=== PATIENT | female | born 1995 | race Two or more races ===

== ENCOUNTER 2017-07-18 19:10 | Outpatient (CLI) | payer MEDICAID ==
[2017-07-18 20:00] LABS: APPEARANCE,URINE CLOUDY; BILIRUBIN,URINE NEGATIVE (NEGATIVE); COLOR,URINE YELLOW; GLUCOSE, URINE NEGATIVE (NEGATIVE); KETONES,URINE NEGATIVE (NEGATIVE); LEUKOCYTE ESTERASE,URINE MODERATE (NEGATIVE); NITRITE,URINE NEGATIVE (NEGATIVE); PROTEIN,URINE NEGATIVE (NEGATIVE); URINE SPECIFIC GRAVITY 1.019
[2017-07-18 20:12] LABS: URINE AMPHETAMINES SCREEN NEGATIVE; URINE BARBITURATES SCREEN NEGATIVE; URINE BENZODIAZEPINES SCREEN NEGATIVE; URINE COCAINE SCREEN NEGATIVE; URINE METHADONE SCREEN NEGATIVE; URINE PHENCYCLIDINE SCREEN NEGATIVE
[2017-07-18 20:16] LABS: URINE MARIJUANA (THC) SCREEN UNCONFIRMED POSITIVE
[2017-07-18 20:24] LABS: T.VAGINALIS (WET MOUNT) NO TRICHOMONAS SEEN; YEAST (WET MOUNT) NO YEAST SEEN
[2017-07-18 20:25] LABS: BACTERIA (WET MOUNT) 4+ BACTERIA SEEN; EPITHELIALS (WET MOUNT) 3+ EPITHELIALS SEEN; WBCS (WET MOUNT) 1+ WBCS SEEN
[2017-07-18 21:49] LABS: CHLAM PCR NOT DETECTED (NOT DETECT); GON PCR DETECTED (NOT DETECT)
[2017-07-18] MEDS ORDERED: AZITHROMYCIN 250 MG TABLET ONE (22:05)
[2017-07-18] MEDS ORDERED: AZITHROMYCIN 250 MG TABLET PO ONE (22:05)
[2017-07-18] MEDS ORDERED: CEFTRIAXONE INJ 1000 MG VIAL ONE (22:05)
[2017-07-18] MEDS ORDERED: ONDANSETRON 4 MG TAB.RAPDIS ONE (22:05)
[2017-07-18] MEDS ORDERED: CEFTRIAXONE INJ 250 MG VIAL IM ONE (22:05)
--- NOTE | 2017-07-18 22:28 | Non Stress Test Report ---
Non Stress Test Datetime Report Generated by CPN: 07/18/2017 22:28 DEMOGRAPHIC EGA NST: 40.5 INDICATION Indication for Study: Ordered by Provider MONITORING Monitor Explained: Monitor Explained; Test Explained; Patient Verbalized Understanding Time on Monitor: 07/18/2017 19:31 Time off Monitor: 07/18/2017 21:29 NST Duration: 118 NST INTERVENTIONS NST Interventions: PO Hydration; Reposition Patient Physician Notified NST: Iqbal BABY A: [id number] BABY A Movement : Present Contraction Frequency : occ FHR Baseline : 125 Accelerations : 15X15 Decelerations : None Variability : Moderate 6-25bpm NST Review: Meets Criteria for Reactive NST NST Review and Verified By : Kwesi Dubose RN NST Results: Reactive NST REPORT Report Trigger: Send Report
--- NOTE | 2017-07-18 23:10 | RADIOLOGY REPORT (SQ) ---
EXAM DESCRIPTION: U/S OB LIMITED COMPLETED DATE/TIME: 07/18/2017 9:05 pm REASON FOR STUDY: Growth, 40+5, poor care, THEO, presentation COMPARISON: None. TECHNIQUE: Limited transabdominal grayscale ultrasound for evaluation of specific requested obstetri billy parameters. LIMITATIONS: None. FINDINGS: Gestational age 39 weeks 0 days. EFW 3709 g, 62 percentile for dates. THEO: 18.5 cm. FHR: 133 beats per minute. PRESENTATION: Cephalic. OTHER: Anterior placenta. IMPRESSION: LIMITED OBSTETRICAL ULTRASOUND WITH MEASURED PARAMETERS DELINEATED ABOVE. Trimester of : Third trimester - 28 weeks to delivery. TECHNICAL DOCUMENTATION: JOB ID: [id number] [id number] 2010 [employer]- All Rights Reserved Reading location - IP/workstation name: [email or web address]
== END 2017-07-18 22:21 | disposition home or self-care (01) ==
LOC: LC 19:10
PROVIDERS: ATTEND Student in an Organized Health Care Education/Training Program
PROC: 4A1HXCZ Monitoring of Products of Conception, Cardiac Rate, External Approach (ICD-10-PCS; principal; 2017-07-18)
DX: O47.1 False labor at or after 37 completed weeks of gestation (principal); Z3A.40 40 weeks gestation of pregnancy
CPT/HCPCS: 59025; 87086; 87210; 81001; 80307; 87491; 87591; 76815; G0480 ×2; Q0144; S0119; J0696

== ENCOUNTER 2017-07-20 06:02 | Inpatient (IN) | payer MEDICAID ==
[2017-07-20] MEDS ORDERED: RINGERS SOLUTION,LACTATED 1,000 ML IV PRN (06:35)
[2017-07-20] MEDS ORDERED: RINGERS SOLUTION,LACTATED 1,000 ML IV ONE (06:35)
[2017-07-20 06:51] LABS: APPEARANCE,URINE TURBID; BILIRUBIN,URINE NEGATIVE (NEGATIVE); COLOR,URINE YELLOW; GLUCOSE, URINE NEGATIVE (NEGATIVE); KETONES,URINE NEGATIVE (NEGATIVE); LEUKOCYTE ESTERASE,URINE TRACE (NEGATIVE); NITRITE,URINE NEGATIVE (NEGATIVE); PROTEIN,URINE 100 mg/dL (NEGATIVE); URINE SPECIFIC GRAVITY 1.008; UROBILINOGEN,URINE NEGATIVE mg/dL (<2.0)
[2017-07-20 07:04] LABS: ABSOLUTE EOSINOPHILS # (AUTO) 0.2 10^3/uL (0.0-0.6); ABSOLUTE LYMPHOCYTES (AUTO) 1.4 10^3/uL (0.5-4.7); ABSOLUTE MONOCYTES (AUTO) 0.8 10^3/uL (0.1-1.4); BASOPHILS % (AUTO) 0.4 % (0-2); HEMATOCRIT 35.4 % (36.0-47.0); HEMOGLOBIN 11.6 g/dL (12.0-15.5); LYMPHOCYTES % (AUTO) 14.9 % (13-45); MEAN CORPUSCULAR HEMOGLOBIN 28.3 pg (27.0-33.4); MEAN CORPUSCULAR HGB CONC 32.9 g/dL (32.0-36.0); MEAN CORPUSCULAR VOLUME 86 fl (80-97); PLATELET COUNT 163 10^3/uL (150-450); RED BLOOD COUNT 4.11 10^6/uL (3.72-5.28); RED CELL DISTRIBUTION WIDTH 14.9 % (11.5-14.0); SEGMENTED NEUTROPHILS % (AUTO) 74.7 % (42-78); TOTAL CELLS COUNTED % (AUTO) 100 %; WHITE BLOOD COUNT 9.4 10^3/uL (4.0-10.5)
[2017-07-20 07:07] LABS: URINE AMPHETAMINES SCREEN NEGATIVE; URINE BARBITURATES SCREEN NEGATIVE; URINE BENZODIAZEPINES SCREEN NEGATIVE; URINE COCAINE SCREEN NEGATIVE; URINE MARIJUANA (THC) SCREEN NEGATIVE; URINE METHADONE SCREEN NEGATIVE; URINE PHENCYCLIDINE SCREEN NEGATIVE
[2017-07-20] MEDS ORDERED: OXYTOCIN/NORMAL SALINE 20 UNIT/1,000 ML RTUINJ ONE (07:26)
[2017-07-20] MEDS ORDERED: OXYTOCIN/NORMAL SALINE 20 UNIT/1,000 ML RTUINJ IV PRN ×2 (07:33→18:09)
--- NOTE | 2017-07-20 07:56 | Admission Physical ---
Datetime Report Generated by CPN: 07/20/2017 07:55 CURRENT ADMISSION Chief Complaint: Uterine Contractions; Suspected Ruptured Membranes Indication for Induction: PROM Admit Impression : Term, Intrauterine ; No Active Labor; Ruptured Membranes Admit Plan: Admit to Unit; Initiate Labor Induction Protocol ALLERGIES Medication Allergies: No Medication Allergies: No Known Allergies (07/20/2017) Latex: No Latex Allergies OBSTETRICAL HISTORY EDC: 07/13/2017 00:00 : 2 Para: 0 Term: 0 : 0 SAB: 0 IAB: 0 Ectopic: 0 Livin Cesareans: 0 VBACs: 0 Multiple Births: 0 Gestational Diabetes: No Rh Sensitization: No Incompetent Cervix: No STACIE: No Infertility: No ART Treatment: No Uterine Anomaly: No IUGR: No Hx Previous C/S: No Macrosomia: No Hx Loss/Stillborn: No PIH: No Hx : No Placenta Previa/Abruption: No Depression/PP Depression: No PTL/PROM: No Post Hemorrhage: No Current Procedures: Ultrasound Obstetrical History Comments: g1 - SAB g2 - current pregnacy. scant PNC SEE RECORDS Alcohol: No Marijuana : No Cocaine: No Other Illicit Drugs: No Cigarettes: Never Smoker. [id number] MEDICAL HISTORY Diabetes: No Blood Transfusion: No Pulmonary Disease (Asthma, TB): No Breast Disease: No Hypertension: No Corporate General Manager Surgery: No Heart Disease: No Hosp/Surgery: No Autoimmune Disorder: No Anesthetic Complications: No Kidney Disease: No Abnormal Pap Smear: No Neuro/Epilepsy: No Psychiatric Disorders: No Other Medical Diseases: No Hepatitis/Liver Disease: No Significant Family History: No Varicosities/Phlebitis: No Trauma/Violence : No Thyroid Dysfunction: No INFECTIOUS HISTORY Gonorrhea: Yes Genital Herpes: No Chlamydia: Yes Tuberculosis: No Syphilis: No Hepatitis: No HIV/AIDS Exposure: No Rash or Viral Illness: No HPV: No Infectious History Comments: 04/16 postive trichomoniasis 07/01 gonorrhea and chlamydia positive PHYSICAL EXAM General: Normal HEENT: Normal Neurologic: Normal Thyroid: Normal Heart: Normal Lungs: Normal Breast: Normal Back: Normal Abdomen: Normal Genitourinary Exam: Normal Extremities: Normal DTRs: Normal Pelvic Type: Adequate Vital Signs: Reviewed VAGINAL EXAM Dilatation: 2 Effacement: 75 Station: -2 MEMBRANES Pooling: Positive Membranes: Ruptured Amniotic Fluid Color: Clear FETUS A EGA: 41.0 Monitoring: External US FHR- Baseline: 120 Variability: Moderate 6-25bpm Accelerations: 15X15 Decelerations: None FHR Category: Category I Estimated Weight (gm): 3900 Presentation: Vertex PLANS FOR LABOR AND DELIVERY Labor and Delivery: None Pain Management: Natural; Medications; Epidural Feeding Preference: Formula Benefit of Breast Feed Discussed: Yes Circumcision: Yes INFORMED CONSENT Signature: with User ID: [email or web address]
[2017-07-20] MEDS ORDERED: CEFTRIAXONE INJ 1000 MG VIAL IV ONE (08:35)
[2017-07-20] MEDS ORDERED: AZITHROMYCIN INJ 500 MG VIAL IV ONE (08:35)
[2017-07-20] MEDS ORDERED: CEFTRIAXONE INJ 1000 MG VIAL ONE (09:41)
[2017-07-20] MEDS ORDERED: AZITHROMYCIN 1,000 MG in DEXTROSE 5%-WATER 500 ML IV ONE (10:45)
[2017-07-20] MEDS ORDERED: NALBUPHINE HCL INJ 10 MG/1 ML AMPULE IM ONE (11:43)
[2017-07-20] MEDS ORDERED: NALBUPHINE HCL INJ 10 MG/1 ML AMPULE ONE (11:45)
[2017-07-20] MEDS ORDERED: FENTANYL/BUPIVACAINE/NS/PF 200 MCG/100 ML RTUINJ EPI ONE (12:11)
[2017-07-20] MEDS ORDERED: FENTANYL CITRATE INJ/PF 100 MCG/2 ML AMPUL ONE (12:11)
[2017-07-20] MEDS ORDERED: EPHEDRINE SULFATE INJ 50 MG/1 ML AMPULE ONE (12:11)
[2017-07-20] MEDS ORDERED: BUPIVACAINE HCL 0.25 % INJ/PF (2.5 MG/1 ML) 30 ML VIAL ONE (12:11)
[2017-07-20] MEDS ORDERED: LIDOCAINE 1% INJ-PF (10 MG/ML) 30 ML SDV ONE (15:52)
[2017-07-20] MEDS ORDERED: MISOPROSTOL 0.2 MG TABLET ONE (15:52)
[2017-07-20] MEDS ORDERED: MEASLES,MUMPS&RUBELLA VACC/PF 0.5 ML VIAL SUBCUT PRN (18:09)
[2017-07-20] MEDS ORDERED: DIBUCAINE 1% OINTMENT 28 GM TP PRN (18:09)
[2017-07-20] MEDS ORDERED: GLYCERIN/WITCH HAZEL LEAF 1 EACH MED..PAD TP PRN (18:09)
[2017-07-20] MEDS ORDERED: PROMETHAZINE HCL INJ 25 MG/1 ML VIAL IV PRN (18:09)
[2017-07-20] MEDS ORDERED: ACETAMINOPHEN 325 MG TABLET PO PRN (18:09)
[2017-07-20] MEDS ORDERED: PSEUDOEPHEDRINE HCL 30 MG TABLET PO PRN (18:09)
[2017-07-20] MEDS ORDERED: ZOLPIDEM TARTRATE 5 MG TABLET PO PRN (18:09)
[2017-07-20] MEDS ORDERED: MAGNESIUM HYDROXIDE SUSP 30 ML UDCUP PO PRN (18:09)
[2017-07-20] MEDS ORDERED: PROMETHAZINE HCL 25 MG TABLET PO PRN (18:09)
[2017-07-20] MEDS ORDERED: DIPH/PERTUSS(ACELL)/TETANUS VAC/PF 0.5 ML SYR (>=10YO) IM PRN (18:09)
[2017-07-20] MEDS ORDERED: DIPHENHYDRAMINE HCL 25 MG CAPSULE PO PRN (18:09)
[2017-07-20] MEDS ORDERED: PROMETHAZINE HCL 25 MG SUPP.RECT PR PRN (18:09)
[2017-07-20] MEDS ORDERED: NA PHOS,M-B/NA PHOS,DI-BA (ADULT) 133 ML ENEMA PR PRN (18:09)
[2017-07-20] MEDS ORDERED: ACETAMINOPHEN WITH CODEINE #3 TABLET PO PRN ×2 (18:09)
[2017-07-20] MEDS ORDERED: BENZOCAINE/MENTHOL AEROSOL SPRAY 56 ML TOP PRN (18:09)
--- NOTE | 2017-07-20 19:30 | Delivery Summary ---
Del Sum A-C Datetime Report Generated by CPN: 07/20/2017 19:29 DELIVERY PERSONNEL DELIVERY PERSONNEL: [id number] Delivery Doctor:: Nhi Iqbal MD Anesthesiologist:: Shagufta Weaver MD Labor and Delivery Nurse:: Tracy Harrington RN Nursery Nurse:: Avani Enriquez RN Body Builder Apprentice/BODY TRIMMER UPHOLSTERER: Rajeev Sherman, ROLL FORMING MACHINE OPERATOR MATERNAL INFORMATION Delivery Anesthesia: Epidural Medications After Delivery: Pitocin Bolus-Please Comment Estimated Blood Loss (ml): 250 Maternal Complications: Other Other Maternal Complications: Limited PNC, active Gonorrhea infection Provider Comments: VMI delivered in RORY presentation. Tight nuchal cord delivered through. Shoulders and body delivered without difficulty. Cord doubly clamped and cut. Shoulders and body delivered without difficulty. Placenta delivered intact spontaneously. Good hemostasis post repair of left labial laceration. FF at U. Mother and baby stable upon provider leaving the room. Infant noted to have cleft lip and prob cleft palate. Dr. Sweet to [facility]. LABOR SUMMARY EDC: 07/13/2017 00:00 No. Babies in Womb: 1 Attempted: No Labor Anesthesia: Epidural LABOR INFORMATION Reason for Induction: Premature Rupture of Membranes Onset of Labor: 07/20/2017 07:51 Complete Dilatation: 07/20/2017 17:29 Oxytocin: Induction Group B Beta Strep: negative (Annotations: Data stored by CPN on behalf of user) Antibiotics # of Doses: 2 Antibiotics Time of Last Dose: 1129 Name of Antibiotic Given: Zithromax Steroids Given: None Reason Steroids Not Administered: Not Applicable MEMBRANES Membranes Rupture Method: Spontaneous Rupture of Membranes: 07/20/2017 04:30 Length of Rupture (hr): 13.28 Amniotic Fluid Color: Clear Amniotic Fluid Amount: Moderate Amniotic Fluid Odor: Normal STAGES OF LABOR Stage 1 hr: 9 Stage 1 min: 38 Stage 2 hr: 0 Stage 2 min: 18 Stage 3 hr: 0 Stage 3 min: 2 Total Time in Labor hr: 9 Total Time in Labor min: 58 VAGINAL DELIVERY Episiotomy: None Laceration #1: Perineal Laceration Extension #1: N/A Other Laceration: left labial laceration Laceration Repair: Yes Sponge Count Correct: Yes Sharps Count Correct: Yes CSECTION DELIVERY Primary Indication: N/A Secondary Indication: N/A CSection Incidence: N/A Labor: N/A Elective: N/A CSection Incision: N/A BABY A INFORMATION Delivery Date/Time: 07/20/2017 17:47 Method of Delivery: Vaginal Born in Route : No : N/A Forceps: N/A Vacuum Extraction: N/A Shoulder Dystocia : No PRESENTATION/POSITION BABY A Presentation: Cephalic Cephalic Presentation: Vertex Vertex Position: Right Occipital Anterior Breech Presentation: N/A PLACENTA INFORMATION BABY A Placenta Delivery Time : 07/20/2017 17:49 Placenta Method of Delivery: Spontaneous Placenta Status: Delivered SCORES BABY A Heart Rate 1 min: >100 bpm Resp Effort 1 min: Good Cry Reflex Irritability 1 min: Cough or Sneeze or Pulls Away Muscle Tone 1 min: Active Motion Color 1 min: Body [place], Extremities Blue Resuscitation Effort 1 min: Tactile Stimulation SCORE 1 MIN: 9 Heart Rate 5 min: >100 bpm Resp Effort 5 min: Good Cry Reflex Irritability 5 min: Cough or Sneeze or Pulls Away Muscle Tone 5 min: Active Motion Color 5 min: Body [place], Extremities Blue Resuscitation Effort 5 min: Tactile Stimulation SCORE 5 MIN: 9 INFORMATION BABY A Gestational Age at Delivery: 41.0 Gestational Status: Late Term- 41- 41.6 Weeks Outcome : Liveborn Infant Condition : Stable Sex: Male IDENTIFICATION BABY A Verification Date/Time: 07/20/2017 17:59 ID Band Number: [id number] Mother's Name Verified: Yes RN Verifying : Mari Alarcon RN Additional Verifying Personnel: Souleymane Enriquez RN WEIGHT/LENGTH BABY A Birthweight (gm): 3760 Weight (lb): 8 Weight (oz): 5 Infant Length (in): 20.50 Length (cm): 52.07 CORD INFORMATION BABY A No. Cord Vessels: 3 Nuchal Cord : Around Neck x1, Tight Cord Blood Taken: Yes-For Storage (Mom's Blood type +) Suction: Mouth ASSESSMENT BABY A Infant Complications: None Physical Findings at Delivery: Molding of the Head; Other Physical Findings- Other: Cleft Lip and palate Respirations: Appears Normal Skin to Skin: Yes Skin to Skin Time (min): 15 Rehab Aid/ALS Called : No Infant Care By: Souleymane Enriquez RN Transferred To: Remains with Mother BABY B INFORMATION : N/A SIGNATURES Signature: with User ID: [email or web address]
[2017-07-20] MEDS: FAMOTIDINE 20 MG TABLET PO SCH (21:43)
[2017-07-20] MEDS: IBUPROFEN 800 MG TABLET PO SCH (21:43)
[2017-07-21] MEDS: IBUPROFEN 800 MG TABLET PO SCH ×3 (06:10→22:07)
[2017-07-21 07:49] LABS: HEMATOCRIT 32.4 % (36.0-47.0); HEMOGLOBIN 10.6 g/dL (12.0-15.5); MEAN CORPUSCULAR HEMOGLOBIN 28.5 pg (27.0-33.4); MEAN CORPUSCULAR HGB CONC 32.8 g/dL (32.0-36.0); MEAN CORPUSCULAR VOLUME 87 fl (80-97); PLATELET COUNT 165 10^3/uL (150-450); RED BLOOD COUNT 3.74 10^6/uL (3.72-5.28); RED CELL DISTRIBUTION WIDTH 15.4 % (11.5-14.0); WHITE BLOOD COUNT 11.6 10^3/uL (4.0-10.5)
[2017-07-21] MEDS: PRENATAL VITAMIN W DHA CAPSULE PO SCH (09:21)
[2017-07-21] MEDS: SENNOSIDES/DOCUSATE 8.6-50 MG 1 EACH TABLET PO SCH (09:22)
[2017-07-21] MEDS: FERROUS SULFATE 325 MG TABLET PO SCH ×2 (09:22→17:40)
[2017-07-21] MEDS: DOCUSATE SODIUM 100 MG CAPSULE PO SCH ×2 (09:22→17:39)
[2017-07-21] MEDS: FAMOTIDINE 20 MG TABLET PO SCH ×2 (09:23→22:07)
--- NOTE | 2017-07-21 10:41 | PDOC PROGRESS REPORT ---
Subjective-OB Progress Note for:: 07/21/17 Subjective: Doing well, no c/o, discussing baby's cleft lip and palate, baby is well and bottle using special nipple, voiding, eating well, good spirits Physical Exam (OB) Vital Signs: Temp Pulse Resp BP Pulse Ox 97.9 F 61 15 127/89 H 97 07/21/17 07:48 07/21/17 07:48 07/21/17 07:48 07/21/17 07:48 07/21/17 07:48 Intake & Output 07/20/17 07/21/17 07/22/17 06:59 06:59 06:59 Intake Total 550 400 Balance 550 400 Weight 95.3 kg - PIH/Pre-Eclampsia DTR's: 2 + Clonus: Negative Headache: Absent Epigastric Pain: No Visual Changes: No - Lochia Lochia Amount: Scant < 10 ml Lochia Color: Rubra/Red - Abdomen Description: Tender, Soft Hernia Present: No Fundal Description: Firm, Midline Fundal Height: u/u - u/2 Objective-Diagnostic Laboratory: 07/21/17 07:25 07/21/17 07:25 WBC 11.6 H RBC 3.74 Hgb 10.6 L Hct 32.4 L MCV 87 MCH 28.5 MCHC 32.8 RDW 15.4 H Plt Count 165 Assessment and Plan(PN) - Assessment and Plan (2) Poor patient attendance of care Is this a current diagnosis for this admission?: Yes (3) Gonorrhea affecting Qualifiers: Trimester: third trimester Qualified Code(s): O98.213 - Gonorrhea complicating , third trimester Is this a current diagnosis for this admission?: Yes (4) Trichomonal vaginitis during Qualifiers: Trimester: third trimester Qualified Code(s): O23.593 - Infection of other part of genital tract in , third trimester; A59.01 - Trichomonal vulvovaginitis; A59.01 - Trichomonal vulvovaginitis Is this a current diagnosis for this admission?: Yes (5) Premature rupture of membranes Qualifiers: PROM gestational age: -third trimester Is this a current diagnosis for this admission?: Yes - Time Spent with Patient Time with patient: Less than 15 minutes Medications reviewed and adjusted accordingly: Yes - Disposition Anticipated Discharge: Home Within: within 48 hours
[2017-07-22] MEDS: IBUPROFEN 800 MG TABLET PO SCH ×2 (06:18→14:20)
[2017-07-22 08:31] VITALS: BP 124/69
[2017-07-22] MEDS: PRENATAL VITAMIN W DHA CAPSULE PO SCH (09:49)
[2017-07-22] MEDS: FAMOTIDINE 20 MG TABLET PO SCH (09:49)
[2017-07-22] MEDS: FERROUS SULFATE 325 MG TABLET PO SCH (09:49)
[2017-07-22] MEDS: DOCUSATE SODIUM 100 MG CAPSULE PO SCH (09:50)
[2017-07-22] MEDS: SENNOSIDES/DOCUSATE 8.6-50 MG 1 EACH TABLET PO SCH (09:50)
--- NOTE | 2017-07-22 12:00 | PDOC DISCHARGE SUMMARY ---
Final Diagnosis Discharge Date: 07/22/17 - Final Diagnosis (1) Poor patient attendance of care Is this a current diagnosis for this admission?: Yes (2) Acute blood loss anemia Is this a current diagnosis for this admission?: Yes (3) Vaginal delivery Is this a current diagnosis for this admission?: Yes (4) Gonorrhea affecting Is this a current diagnosis for this admission?: Yes (5) Trichomonal vaginitis during Is this a current diagnosis for this admission?: Yes (6) Chlamydia infection, current Is this a current diagnosis for this admission?: Yes (7) Post term over 40 weeks Is this a current diagnosis for this admission?: Yes (8) Premature rupture of membranes Is this a current diagnosis for this admission?: Yes Discharge Data - Discharge Medication Prescriptions: Ibuprofen [Motrin 800 mg Tablet] 800 mg PO Q8HP PRN #60 tablet PRN Reason: Abdominal Cramping Docusate Sodium [Colace 100 mg Capsule] 100 mg PO BID #60 capsule Ferrous Sulfate [Feosol 325 mg Tablet] 325 mg PO BID #60 tablet Vit/Dha [ Multi + Dha Capsule] 1 cap PO DAILY #60 capsule Home Medications: Docusate Sodium [Colace 100 mg Capsule] 100 mg PO BID #60 capsule 07/22/17 Ferrous Sulfate [Feosol 325 mg Tablet] 325 mg PO BID #60 tablet 07/22/17 Ibuprofen [Motrin 800 mg Tablet] 800 mg PO Q8HP PRN #60 tablet 07/22/17 Vit/Dha [ Multi + Dha Capsule] 1 cap PO DAILY #60 capsule 07/22 Reason(s) for Admission: Onset of Labor, PROM Procedures: Ultrasound Intrapartum Procedure(s): Spontaneous Vaginal Delivery Complication(s): Laceration-Perineal, Laceration-Labial Laceration-Degree: 1st - Diagnosis Test Laboratory: Temp Pulse Resp BP Pulse Ox 98.4 F 66 18 124/69 100 07/22/17 07:33 07/22/17 07:33 07/22/17 07:33 07/22/17 07:33 07/22/17 07:33 07/20/17 07/20/17 07/21/17 06:12 06:45 07:25 RBC 4.11 3.74 Hgb 11.6 L 10.6 L Hct 35.4 L 32.4 L Urine Opiates Screen NEGATIVE - Discharge information/Instructions Discharge Activity: Activity As Tolerated, Balance Activity w/Rest, No Lifting Over 10 Pounds, Pelvic Rest, No tub bath, Walk Frequently Discharge Diet: Regular Disposition: HOME, SELF-CARE Follow up with: [facility] in: 4, Weeks
== END 2017-07-22 14:30 | disposition home or self-care (01) | DRG 774 ==
LOC: LC 06:02 → EEVIPCON 06:31 → LR 06:31 → 2N 20:05
PROVIDERS: ADMIT Student in an Organized Health Care Education/Training Program; ATTEND Student in an Organized Health Care Education/Training Program
PROC: 4A1HXCZ Monitoring of Products of Conception, Cardiac Rate, External Approach (ICD-10-PCS; 2017-07-20)
PROC: 10E0XZZ Delivery of Products of Conception, External Approach (ICD-10-PCS; principal; 2017-07-22)
PROC: 0HQ9XZZ Repair Perineum Skin, External Approach (ICD-10-PCS; 2017-07-22)
PROC: 3E0234Z Introduction of Serum, Toxoid and Vaccine into Muscle, Percutaneous Approach (ICD-10-PCS; 2017-07-22)
DX: O69.1XX0 Labor and delivery complicated by cord around neck, with compression, not applicable or unspecified (principal); O98.22 Gonorrhea complicating childbirth; A54.02 Gonococcal vulvovaginitis, unspecified; D62 Acute posthemorrhagic anemia; O99.02 Anemia complicating childbirth; O70.0 First degree perineal laceration during delivery; O48.0 Post-term pregnancy; O42.92 Full-term premature rupture of membranes, unspecified as to length of time between rupture and onset of labor; Z23 Encounter for immunization; Z3A.41 41 weeks gestation of pregnancy; Z37.0 Single live birth; Z86.19 Personal history of other infectious and parasitic diseases
CPT/HCPCS: 36415; 80307; 81005; 85025; 85027; 86592; 86850; 86900; 86901; 88307; 90715; 94760; J0456; J0696; J2300; J2590; J3010; J3490; J7060

== ENCOUNTER 2019-07-03 00:57 | Emergency (ER) | payer SELFPAY ==
[2019-07-03 01:02] VITALS: BP 143/80
--- NOTE | 2019-07-03 01:41 | RADIOLOGY REPORT (SQ) ---
EXAM DESCRIPTION: Three views of the right wrist CLINICAL HISTORY: 23 years Female, PAIN punched glass. Pain along the medial side of the wrist. COMPARISON: None. FINDINGS: Bone mineralization is normal. Alignment is anatomic. No fracture. No definitive radiopaque foreign body. No air is seen in the soft tissues. No erosions or periostitis. IMPRESSION: No fracture or obvious radiopaque foreign body.
--- NOTE | 2019-07-03 02:05 | ER Document Report ---
Entered by YAZAN BORJAS SCRIBE 07/03/19 0141 Acting as scribe for:JEMAL DINERO IV, MD ED Hand/Wrist Injury - General Chief Complaint: Wrist Pain Stated Complaint: RIGHT HAND INJURY Time Seen by Provider: 07/03/19 01:39 Primary Care Provider: ROSIBEL PEACOCK MD [Primary Care Provider] - Follow up as needed Mode of Arrival: Ambulatory Information source: Patient Notes: This 23 year old female patient with no significant past medical or surgical history presents to the ED today with complaints of right wrist pain that occurred prior to arrival. Patient states that she punched a glass with her right hand. Patient denies any other symptoms. TRAVEL OUTSIDE OF THE [place] IN LAST 30 DAYS: No - Related Data Allergies/Adverse Reactions: No Known Allergies Allergy (Verified 07/20/17 07:35) Past Medical History - General Information source: Patient - Social History Smoking Status: Never Smoker Cigarette use (# per day): No Chew tobacco use (# tins/day): No Smoking Education Provided: No Family History: Reviewed & Not Pertinent Patient has suicidal ideation: No Patient has homicidal ideation: No - Medical History Medical History: Other - Denies any medical history Surgical Hx: Other - Denies any surgical history Review of Systems - Review of Systems Constitutional: No symptoms reported EENT: No symptoms reported Cardiovascular: No symptoms reported Respiratory: No symptoms reported Gastrointestinal: No symptoms reported Genitourinary: No symptoms reported Female Genitourinary: No symptoms reported Musculoskeletal: See HPI, Other - Right wrist pain Skin: No symptoms reported Hematologic/Lymphatic: No symptoms reported Neurological/Psychological: No symptoms reported -: Yes All other systems reviewed and negative Physical Exam - Vital signs Vitals: Temp Pulse Resp BP Pulse Ox 98.3 F 92 16 143/80 H 97 07/03/19 01:00 07/03/19 01:00 07/03/19 01:00 07/03/19 01:00 07/03/19 01:00 - General General appearance: Alert - HEENT Head: Normocephalic, Atraumatic Eyes: Normal Pupils: PERRL - Respiratory Respiratory status: No respiratory distress Chest status: Nontender Breath sounds: Normal Chest palpation: Normal - Cardiovascular Rhythm: Regular Heart sounds: Normal auscultation Murmur: No Friction rub: No Gallop: None auscultated - Abdominal Inspection: Normal Distension: No distension Bowel sounds: Normal Tenderness: Nontender - Abdomen soft Organomegaly: No organomegaly - Back Back: Normal, Nontender - Extremities General upper extremity: Normal inspection General lower extremity: Normal inspection Wrist: Ecchymosis - Right wrist.. No: Tender - No snuffbox tenderness with palpation. - Neurological Neuro grossly intact: Yes - Psychological Associated symptoms: Normal affect, Normal mood - Skin Skin Temperature: Warm Skin Moisture: Dry Skin Color: Normal Course - Re-evaluation Re-evalutation: 07/03/19 01:46 Results of ED MSE discussed with patient. All questions were answered. Emergency signs and symptoms, reasons to return to the emergency department discussed with patient. - Vital Signs Vital signs: Temp Pulse Resp BP Pulse Ox 98.3 F 92 16 143/80 H 97 07/03/19 01:00 07/03/19 01:00 07/03/19 01:00 07/03/19 01:00 07/03/19 01:00 - Diagnostic Test Radiology reviewed: Reports reviewed Discharge - Discharge Clinical Impression: Right wrist sprain Qualifiers: Encounter type: initial encounter Qualified Code(s): S63.501A - Unspecified sprain of right wrist, initial encounter Condition: Good Disposition: HOME, SELF-CARE Additional Instructions: Return to the Emergency Department without delay if any worse. Sprain Your injury is a sprain. A sprain results from stretching or tearing of the ligaments, usually from a twisting injury. The ligaments will require time and protection in order to heal properly. Many sprains are quite disabling and should be taken seriously. The usual initial treatment of sprains is cold packs, elevation, and rest of the injured area. Your physician has assessed the seriousness of your ligament injury, and has outlined a treatment plan. Understand that this treatment may change, depending on how you progress. If a re-examination was recommended, it is important that you follow up as instructed. Call the doctor any time if there is severe pain, numbness, or loss of function in the injured area. HOME CARE INSTRUCTIONS & INFORMATION: Thank you for choosing us for your medical needs. We hope you're satisfied with the care you received. After you leave, you must properly care for your problem and, at the same time, observe its progress. Any condition can change. Some illnesses can change rapidly over hours or days. If your condition worsens, return to the Emergency Department or see your physician promptly. ABOUT YOUR X-RAYS AND EKG'S: If you had an EKG or X-rays taken, they have been read by the Emergency Physician. The X-rays and EKG's will also be read by a Radiologist or Crystal Grower within 24 hours. If discrepancies are noted, you will be notified by telephone. Please be certain the ED has a correct telephone number & address where you can be reached. Also, realize that some fractures or abnormalities do not show up on initial X-rays. If your symptoms continue, see your physician. ABOUT YOUR LABORATORY TEST: If you had laboratory tests, the results have been reviewed by the Emergency Physician. Some test results (for example cultures) may not be available for several days. You will be contacted if any test result shows you need additional treatment. Please be certain the ED has a correct tel [facility] number and address where you can be reached. ABOUT YOUR MEDICATIONS: You will receive instructions on how to take your medicine on the prescription label you receive. Additional information may be provided by the Pharmacy. If you have questions afterwards, call the ED for clarification or further instructions. Some prescribed medications may cause drowsiness. Do not perform tasks such as driving a car or operating machinery without consulting your Pharmacist. If you feel you need a refill of pain medication, your condition will need re-evaluation. Please do not call for a refill of any medication. ABOUT YOUR SIGNATURE: Signature of this document acknowledges to followin. Understanding that you received emergency treatment and that you may be released before al medical problems are known or treated. Please be certain the ED has a correct phone number & address where you can be reached. 2. Acknowledgement that you will arrange for follow-up care as recommended. 3. Authorization for the Emergency Physician to provide information to your follow-up Physician in order to maximize your care. AT ANY TIME, IF YOUR SYMPTOMS CHANGE SIGNIFICANTLY OR WORSEN OR YOU DEVELOP NEW SYMPTOMS, RETURN TO THE EMERGENCY DEPARTMENT IMMEDIATELY FOR RE-EVALUATION. OUR GOAL IS TO PROVIDE EXCELLENT MEDICAL CARE! WE HOPE THAT WE HAVE MET YOUR EXPECTATIONS DURING YOUR EMERGENCY DEPARTMENT VISIT AND THAT YOU FEEL YOU HAVE RECEIVED EXCELLENT CARE! Referrals: ROSIBEL PEACOCK MD [Primary Care Provider] - Follow up as needed I personally performed the services described in the documentation, reviewed and edited the documentation which was dictated to the scribe in my presence, and it accurately records my words and actions.
== END 2019-07-03 01:57 | disposition home or self-care (01) ==
LOC: EEVIPCON 00:57 → ER 00:57
DX: S63.501A Unspecified sprain of right wrist, initial encounter (principal); W22.8XXA Striking against or struck by other objects, initial encounter
CPT/HCPCS: 99283